=== PATIENT | female | born 1980 | race Caucasian/White ===

== ENCOUNTER 2016-06-17 12:42 | Observation (INO) | payer BC, OTHER ==
[~2016-06-17] VITALS: Ht 167.6 cm; Wt 79.6 kg
--- NOTE | ~2016-06-17 | EKG ---
[address] [place] [address] ELECTROCARDIOGRAM REPORT Name: REGINA HUANG Room #: 313-P ADM IN M.R.#: [id number] Admission: 06/17/16 Attend Phys: Jamie Agarwal MD Discharge: Date of : 78 Report #: [id number] THIS REPORT FOR: //name// [facility] ED Test Date: 2016-06-17 Test Time: 13:09:12 Pat Name: REGINA HUANG Department: Room: [facility] Gender: F [employer] Analyst: monty : 1980 Requested By: Cassandra Galicia Order Number: [id number] MD: John Ford Measurements Intervals [place] Rate: 53 P: 30 MS: 232 QRS: 9 QRSD: 86 T: 29 QT: 451 QTc: 424 Interpretive Statements Sinus rhythm with sinus arrhythmia Prolonged MS interval No previous ECG available for comparison Electronically Signed On 06-18-2016 12:50:24 CDT by John Ford [email or web address] <ELECTRONICALLY SIGNED> By: John Ford MD, [facility] 06/18/16 1250 1309 [id number] John Ford MD, FACC /EPI
--- NOTE | ~2016-06-17 | 2DMMODE ---
[facility] [place] [address] 2 D/M-MODE ECHOCARDIOGRAM Name: REGINA HUANG Freddy Room #: 313-P [facility] IN ..#: [id number] Admission: 06/17/16 Attend Phys: Gabrielle Sanders Discharge: Date of : 78 Date of Service: 06/19/16 1015 Report #: [id number] THIS REPORT FOR: //name// APPROVED REPORT Study performed: 06/19/2016 08:28:05 EXAM: Comprehensive 2D, Doppler, and color-flow Echocardiogram Patient Location: In-Patient Room #: 313 Blood Pressure: 126/83 mmHg HR: 46 bpm Rhythm: Bradycardia Other Information Study Quality: Good Indications Bradycardia, weakness Echo Enhancing Agent Indication: Rule out Shunt Agent/Amount Used: Agitated Saline cc 2D Dimensions RVDd: 34.81 mm LVEF(%): 50.17 (>50%) IVSd: 8.59 (7-11mm) LVOT Diam: 20.33 (18-24mm) LVDd: 56.37 mm PWd: 9.43 (7-11mm) Ascending Ao: 28.50 (22-36mm) LVDs: 41.81 (25-40mm) Aortic Root: 31.60 mm Cheung's LVEF: 50.17 % Volumes Left Atrial Volume (Systole) Single Plane 4CH: 43.98 mL Single Plane 2CH: 36.74 mL Aortic Valve AoV Peak Haseeb.: 1.52 m/s AO Peak Gr.: 9.22 mmHg LVOT Max P.05 mmHg LVOT Max V: 0.87 m/s [facility] [address] [place] [address] 2 D/M-MODE ECHOCARDIOGRAM Name: REGINA HUANG Room #: 313-P [facility] IN [facility].#: [id number] Admission: 06/17/16 Attend Phys: Gabrielle Sanders Discharge: Date of : 78 Date of Service: 06/19/16 1015 Report #: [id number] Mitral Valve E/A Ratio: 1.3 MV Decel. Time: 174.02 ms MV E Max Haseeb.: 0.90 m/s MV A Haseeb.: 0.69 m/s MV PHT: 50.47 ms Pulmonary Valve PV Peak Haseeb.: 0.92 m/s PV Peak Gr.: 3.36 mmHg Pulmonary Vein P Vein S: 53.3 m/s P Vein D: 34.9 m/s Tricuspid Valve TR Peak Haseeb.: 2.10 m/s RAP Estimate: 5.00 mmHg TR Peak Gr.: 17.60 mmHg RVSP: 23.00 mmHg Left Ventricle The left ventricle is normal size. There is normal LV segmental wall motion. There is normal left ventricular wall thickness. Left ventricular systolic function is normal. LVEF is 50-55%. The left ventricular diastolic function is normal. Right Ventricle The right ventricle is normal size. The right ventricular systolic function is normal. Atria The left atrium size is normal. Injection of bubbles documented an interatrial shunt. The right atrium size is normal. Aortic Valve The aortic valve is normal in structure. Trace aortic regurgitation. There is no aortic valvular stenosis. Mitral Valve The mitral valve is normal in structure. Mild mitral regurgitation. Tricuspid Valve The tricuspid valve is normal in structure. There is mild tricuspid regurgitation. The right atrial pressure is estimated at 5 mmHg. Estimated PAP is 23mmHg. Pulmonic Valve [facility] [address] [place] [address] 2 D/M-MODE ECHOCARDIOGRAM Name: REGINA HUANG Room #: 313-P [facility] IN ..#: [id number] Admission: 06/17/16 Attend Phys: Gabrielle Sanders Discharge: Date of : 78 Date of Service: 06/19/16 1015 Report #: [id number] The pulmonary valve is normal in structure. Trace pulmonic regurgitation. Great Vessels The aortic root is normal in size. The ascending aorta is normal in size. IVC is normal in size and collapses >50% with inspiration. Pericardium There is no pericardial effusion. <Conclusion> The left ventricle is normal size. Left ventricular systolic function is normal. The left ventricular diastolic function is normal. The right ventricle is normal size. The left atrium size is normal. Trace aortic regurgitation. Mild mitral regurgitation. There is mild tricuspid regurgitation. The right atrial pressure is estimated at 5 mmHg. Estimated PAP is 23mmHg. <ELECTRONICALLY SIGNED> By: Fernanod Dickinson MD 06/19/16 1015 1015 1015 Fernando Dickinson MD /INF
[2016-06-17 12:53] VITALS: BP 137/89
[2016-06-17 13:15] LABS: URINE BILIRUBIN NEGATIVE (Negative); URINE BLOOD 2+ (Negative); URINE COLOR YELLOW; URINE GLUCOSE-RANDOM* NEGATIVE (Negative); URINE KETONES NEGATIVE (Negative); URINE NITRITE NEGATIVE (Negative); URINE PROTEIN (DIPSTICK) NEGATIVE (Negative); URINE UROBILINOGEN 0.2 E.U./dl (0.2-1.0)
[2016-06-17 13:15] LABS: BASOPHILS 0.4 % (0.0-2.0); EOSINOPHILS 1.1 % (0.0-3.0); HEMATOCRIT 38.1 % (37.0-47.0); LYMPHOCYTES 31.4 % (24.0-44.0); MCH 29.9 pg (26.0-34.0); PLATELET COUNT 304 thou/uL (150-400); POLYS 61.1 % (36.0-66.0); RBC 4.33 mil/uL (4.20-5.00); WBC 11.4 thou/uL (4.0-11.0)
[2016-06-17 13:18] LABS: MANUAL DIFF NO
[2016-06-17 13:20] LABS: CALCIUM 8.3 mg/dL (8.5-10.1); CREATININE 0.7 mg/dL (0.6-1.0); POTASSIUM 3.8 mmol/L (3.5-5.1)
[2016-06-17 13:21] LABS: SQUAMOUS 4-10 Moderate /LPF (0-3); URINE WBC None Seen /HPF (0-5)
[2016-06-17 13:22] LABS: BACTERIA None Seen /HPF (None Seen); CASTS None Seen /LPF (None Seen); CRYSTALS None Seen /LPF (None Seen); URINE RBC 3-10 Few /HPF (0-2)
[2016-06-17 13:25] LABS: ALBUMIN 3.2 g/dL (3.4-5.0); TOTAL BILIRUBIN 0.3 mg/dL (<0.1-1.0); TOTAL PROTEIN 6.5 g/dL (6.4-8.2)
[2016-06-17 15:24] VITALS: BP 131/68
[2016-06-17 16:00] VITALS: BP 106/60
[2016-06-17 19:06] LABS: AMP/METHAMP POSITIVE (Negative); BARBITURATES Negative (Negative); BENZODIAZEPINES Negative (Negative); COCAINE Negative (Negative); METHADONE Negative (Negative); OPIATES Negative (Negative); PCP Negative (Negative); THC POSITIVE (Negative)
[2016-06-17 20:31] VITALS: BP 119/74
[2016-06-18 04:33] VITALS: BP 120/72
[2016-06-18 08:30] VITALS: BP 116/77
[2016-06-18] MEDS ORDERED: CLONAZEPAM 0.50.5 M1 PO ×2 (14:04→14:05)
[2016-06-18 15:35] VITALS: BP 116/74
[2016-06-18 20:40] VITALS: BP 129/86
[2016-06-19 03:34] LABS: CHOLESTEROL 147 mg/dL (<200); HDL CHOLESTEROL 48 mg/dL (>40); LDL CHOLESTEROL 90 mg/dL (<100); TC:HDL 3.1 Ratio (Not establshd); TRIGLYCERIDE 45 mg/dL (<150); VLDL 9 mg/dL (<40)
[2016-06-19 03:38] LABS: SERUM ASSESSMENT Clear
[2016-06-19 04:55] VITALS: BP 130/90
[2016-06-19 07:50] VITALS: BP 126/83
[2016-06-19] MEDS ORDERED: NICOTINE TRANSD14 M1 TRANSDERM (11:43)
[2016-06-19] MEDS ORDERED: PERCOCET PO (11:43)
[2016-06-19 17:21] VITALS: BP 126/83
[2016-06-22 01:11] LABS: ALPHA TOCOPHEROL 8.2 mg/L (5.3-16.8)
== END 2016-06-19 17:42 | disposition home or self-care (01) ==
LOC: ER 12:42 → EROBS 14:51 → 3N 14:51
PROVIDERS: Family Medicine; Nurse Practitioner Family; Psychiatry & Neurology Neurology
DX: G43.909 Migraine, unspecified, not intractable, without status migrainosus (principal); F17.210 Nicotine dependence, cigarettes, uncomplicated; F41.9 Anxiety disorder, unspecified; R00.1 Bradycardia, unspecified; Z79.899 Other long term (current) drug therapy; M54.2 Cervicalgia
CPT/HCPCS: 10795; 23017; 23024; 23029